=== PATIENT | male | born 1995 | race Caucasian/White ===

== ENCOUNTER 2020-01-07 13:20 | Emergency (ER) | payer OTHER ==
[~2020-01-07] VITALS: Ht 177.8 cm; Wt 68.1 kg
--- NOTE | 2020-01-07 13:54 | PHYS DOC ---
Past History Past Medical History: Asthma Past Surgical History: Other Additional Past Surgical Histo: right knee scope Alcohol Use: None Adult General Chief Complaint Chief Complaint: LACERATION/AVULSION HPI HPI Patient is a 24 year old male who presents with complaints of a finger laceration to his right index finger palmar side. 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 Patient states that he is not sure how long ago his tetanus shot was and wishes to get a tetanus shot immunization today. Patient denies any other health problems or symptoms. Patient denies any numbness or tingling or sensation changes to his affected finger both proximal or distal to his finger laceration wound. Patient states that he does not think he lost very much blood from his laceration as he immediately wrapped it in a bandage. Patient states that the laceration happened at approximately 1130 this morning. Patient denies any fever or chills, visual changes, nasal congestion, cough, shortness of breath, chest pain, or edema. Patient denies any abdominal pain, nausea, vomiting, diarrhea, constipation. Patient denies any problems urinating, denies back pain, pain in his joints, skin rashes, headaches, focal weaknesses, or sensory changes. Patient denies any increased thirst, increased urination. Patient denies any swelling of his glands. Patient denies any homicidal or suicidal ideation. Patient denies any recent depressions or recent anxieties. Patient denies having the Covid virus, patient denies any Covid virus symptoms, patient does not wish to be tested for the Covid virus today. Review of Systems Review of Systems Constitutional: Denies fever or chills Eyes: Denies change in visual acuity, redness, or eye pain HENT: Denies nasal congestion or sore throat Respiratory: Denies cough or shortness of breath Cardiovascular: No additional information not addressed in HPI GI: Denies abdominal pain, nausea, vomiting, bloody stools or diarrhea : Denies dysuria or hematuria Musculoskeletal: Denies back pain or joint pain Integument: Denies rash or skin lesions, complains of laceration to the right index finger. Neurologic: Denies headache, focal weakness or sensory changes Endocrine: Denies polyuria or polydipsia Psychiatric: Patient denies homicidal or suicidal ideations, patient denies recent depressions or anxieties. All other systems were reviewed and found to be within normal limits, except as documented in this note. Family History Family History Patient denies any family history significant to this ER visit today. Current Medications Current Medications Patient states he does not take any prescription medications or [id number] medications at home. Allergies Allergies Allergies Coded Allergies Type Severity Reaction Last Updated Verified vancomycin Allergy Unknown 01/07/20 Yes Physical Exam Physical Exam Constitutional: Well developed, well nourished, no acute distress, non-toxic appearance. [] HENT: Normocephalic, atraumatic, bilateral external ears normal, oropharynx moist, no oral exudates, nose normal. [] Eyes: PERRLA, EOMI, conjunctiva normal, no discharge. [] Neck: Normal range of motion, no tenderness, supple, no stridor. [] Cardiovascular:Heart rate regular rhythm, no murmur [] Lungs & Thorax: Bilateral breath sounds clear to auscultation [] Abdomen: Bowel sounds normal, soft, no tenderness, no masses, no pulsatile masses. [] Skin: Warm, dry, no erythema, no rash. patient has a 1.75 cm laceration across right hand index finger MIP joint palmar aspect, nonfull-thickness superficial the laceration did not extend into the adipose tissue or muscle fascia. There is no tendon involvement associated with this laceration. Patient has full AROM/PROM without loss of sensation, distal cap refill less than 2 seconds. Back: No tenderness, no CVA tenderness. [] Extremities: No tenderness, no cyanosis, no clubbing, ROM intact, no edema. [] Neurologic: Alert and oriented X 3, normal motor function, normal sensory function, no focal deficits noted. [] Psychologic: Affect normal, judgement normal, mood normal. [] Current Patient Data Vital Signs Vital Signs Date Time Temp Pulse Resp B/P (MAP) Pulse Ox O2 Delivery O2 Flow Rate FiO2 01/07/20 13:35 97.8 80 14 125/80 (95) 98 Room Air EKG EKG [] Radiology/Procedures Radiology/Procedures [] Heart Score Risk Factors: Risk Factors: DM, Current or recent (<one month) smoker, HTN, HLP, family history of CAD, obesity. Risk Scores: Risk Factors: DM, Current or recent (<one month) smoker, HTN, HLP, family history of CAD, obesity. Course & Med Decision Making Course & Med Decision Making Pertinent Labs and Imaging studies reviewed. (See chart for details) 24-year-old male presents emergency department with a right index finger laceration on the palmar aspect across to his MIP joint. Patient is unsure exactly what cut him however patient states he was working in a [employer] and believes that it was a corn stock that lacerated his finger. The patient's hands were heavily callused and embedded with dirt and grinding related to his field of work. The laceration was superficial, did not enter the adipose tissue or muscle fascia, there was no tendon involvement, there was full AROM/PROM, no loss of sensation, distal cap refill was less than 2 seconds prior to laceration repair. Because of this I elected to presoaked the patient's laceration and Betadine/normal saline solution for 15 minutes then let air dry for 15 minutes prior to scrubbing his lacerated finger and adjacent skin surfaces with chlorhexidine sponge scrub brush. The wound was then irrigated with approximately 440 cc of pressurized saline, examined for foreign bodies which there were none found. The wound was then closed with 6 interrupted sutures using 4.0 nylon, edges well approximated, no oozing of blood, no loss of sensation, distal cap refill was less than 2 seconds. There. Laceration was dressed with Polysporin and bandaged then splinted with an aluminum finger splint per ED nursing staff upon reexamination the patient remained neurovascular intact with cap refill less than 2 seconds. Discussed with patient home care instructions, wound care/suture care instructions, return to ER concerns, will place patient on p.o. Keflex prophylactically related to the nature of his laceration. Patient gave verbal understanding of discharge instructions return to ER instructions, had no further questions or concerns, patient discharged home without incident. Dragon Disclaimer Dragon Disclaimer This electronic medical record was generated, in whole or in part, using a voice recognition dictation system. Laceration Repair Lac Repair Indication: Laceration to right index finger across MIP joint palmar aspect 1.75 cm linear superficial, without tendon involvement, did not extend into adipose tissue or muscle fascia. 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 The patient was then placed in the appropriate position and anesthesia around the was achieved with a digital block using 4.5 cc of 1% lidocaine without epinephrine. The area was then cleansed again with chlorhexidine scrub, irrigated with 440 cc normal saline, wound was explored and was found without foreign bodies. The laceration was was closed using 6 interrupted sutures 4.0 nylon. The wound area was then dressed with Polysporin and bandage then splinted per ED nursing staff. Reexamined after bandage and splint applied patient remained neurovascular intact with distal cap refill less than 2 seconds. Total repaired wound length: 1.75 cm Other Items: [OTHER ITEMS] The patient tolerated the procedure well. Complications: No complications. Departure Departure: Impression: Primary Impression: Laceration of index finger of right hand without complication Disposition: 01 DC HOME SELF CARE/HOMELESS Condition: GOOD Referrals: PCP,NO (PCP) Patient Instructions: Laceration Care, Adult Additional Instructions: Your right index finger required a laceration repair, you have 6 interrupted sutures placed, do not remove dressing for the next 48 hours then you may clean with soap and water daily and place antibiotic ointment over suture site. Keep covered with Band-Aid at the very least, use finger splint to prevent sutures from self removing. Have your sutures removed in 7 to 10 days. I am placing you on a antibiotic to prevent infection because of the nature of the laceration, I do not believe you have an infection at this time, the antibiotic is just to prevent an infection. Please return to the emergency department for worsening symptoms or signs and symptoms of infection or for other concerns. Scripts Cephalexin (KEFLEX) 500 Mg Capsule 500 MG PO BID for FINGER LACERATION for 7 Days, #14 CAP 0 Refills Prov: JUDYNishaZAHEER APRN 01/07/20 ZAHEER OSMAN APRN Jan 07, 2020 13:54
[2020-01-07] MEDS ORDERED: DIPH,PERTUSS(ACELL),TET VAC/PF 0.5 ML SYRINGE. VAX IM ONE (14:00)
[2020-01-07] MEDS ORDERED: LIDOCAINE 1% Multi-Dose 20 ML VIAL. IJ ONE (14:15)
[2020-01-07] MEDS ORDERED: BACITRACIN ZINC TOPICAL OINT PACKET. TP ONE (14:15)
[2020-01-07] MEDS ORDERED: CEPH-264 PO (15:17)
[2020-01-07 15:26] VITALS: BP 116/68
== END 2020-01-07 15:22 | disposition home or self-care (01) ==
LOC: ER 13:20
DX: S61.210A Laceration without foreign body of right index finger without damage to nail, initial encounter (principal); J45.909 Unspecified asthma, uncomplicated; Z88.1 Allergy status to other antibiotic agents; W26.8XXA Contact with other sharp object(s), not elsewhere classified, initial encounter; Y93.89 Activity, other specified; Y92.89 Other specified places as the place of occurrence of the external cause; Y99.8 Other external cause status
CPT/HCPCS: 12001; 90471; 90715; 99283